=== PATIENT | male | born 1950 | race Caucasian/White ===

== ENCOUNTER → 2017-01-18 | Outpatient (CLI) | payer MEDICARE, OTHER ==
[~2017-01-18] MED LIST: BETAPACE AF80 MG PO; CARDIZEM 90MG T90 MG PO; CRESTOR40 MG PO; DEXILANT60 MG PO; ELIQUIS 5 MG TAB5 MG PO; IMDUR ER TAB 3030 MG PO; NITROGLYCERIN0.4 MG SL; PERCOCET 10-321 EACH PO; PLAVIX 75 MG TA75 MG PO; PRINIVIL20 MG PO
[2017-01-18 10:10] LABS: HEMOGLOBIN 15.3 gm/dl (14.0-17.5); RED BLOOD COUNT 5.82 M/UL (4.20-5.50); WHITE BLOOD COUNT 6.4 K/UL (4.5-11.0)
[2017-01-18 10:31] LABS: BUN/CREATININE RATIO 14 (0-10)
== END ==
LOC: LAB 09:35
PROVIDERS: Family Medicine
DX: Z12.5 Encounter for screening for malignant neoplasm of prostate (principal); D75.1 Secondary polycythemia; R53.83 Other fatigue; E78.5 Hyperlipidemia, unspecified; I10 Essential (primary) hypertension; R97.20 Elevated prostate specific antigen [PSA]; E55.9 Vitamin D deficiency, unspecified
CPT/HCPCS: 36415; 80053; 80061; 84439; 84443; 85027; 99195; G0103

== ENCOUNTER → 2017-03-11 | Outpatient (CLI) | payer MEDICARE, OTHER ==
[2017-03-11 10:23] LABS: HEMOGLOBIN 13.9 gm/dl (14.0-17.5); RED BLOOD COUNT 5.53 M/UL (4.20-5.50); WHITE BLOOD COUNT 5.7 K/UL (4.5-11.0)
== END ==
LOC: LAB 09:59
PROVIDERS: Internal Medicine Cardiovascular Disease
DX: D61.818 Other pancytopenia (principal)
CPT/HCPCS: 36415; 85025

== ENCOUNTER → 2017-04-29 | Outpatient (CLI) | payer MEDICARE, OTHER ==
[2017-04-29 09:13] LABS: HEMOGLOBIN 13.1 gm/dl (14.0-17.5); RED BLOOD COUNT 5.36 M/UL (4.20-5.50); WHITE BLOOD COUNT 5.7 K/UL (4.5-11.0)
== END ==
LOC: LAB 08:45
PROVIDERS: Internal Medicine Cardiovascular Disease
DX: D75.1 Secondary polycythemia (principal)
CPT/HCPCS: 36415; 85025

== ENCOUNTER 2017-07-23 16:21 | Inpatient (IN) | payer MEDICARE, OTHER ==
[~2017-07-23] VITALS: Ht 177.8 cm; Wt 129.3 kg
[2017-07-23 20:04] LABS: HEMOGLOBIN 13.6 gm/dl (14.0-17.5); RED BLOOD COUNT 5.57 M/UL (4.20-5.50); WHITE BLOOD COUNT 7.2 K/UL (4.5-11.0)
[2017-07-23 20:08] LABS: BUN/CREATININE RATIO 13 (0-10)
[2017-07-24] MEDS ORDERED: ELIQUIS 5 MG TAB5 MG PO (05:16)
[2017-07-24] MEDS ORDERED: DEXILANT60 MG PO (05:17)
[2017-07-24] MEDS ORDERED: PLAVIX 75 MG TA75 MG PO (05:17)
[2017-07-24] MEDS ORDERED: IMDUR ER TAB 3030 MG PO (05:18)
[2017-07-24] MEDS ORDERED: PRINIVIL20 MG PO (05:19)
[2017-07-24] MEDS ORDERED: NITROGLYCERIN0.4 MG SL (05:20)
[2017-07-24] MEDS ORDERED: PERCOCET 10-321 EACH PO (05:20)
[2017-07-24] MEDS ORDERED: CRESTOR40 MG PO (05:21)
[2017-07-24] MEDS ORDERED: BETAPACE AF80 MG PO (05:22)
[2017-07-24 05:55] LABS: HEMOGLOBIN 14.2 gm/dl (14.0-17.5); RED BLOOD COUNT 5.79 M/UL (4.20-5.50)
[2017-07-24 06:13] LABS: BUN/CREATININE RATIO 13 (0-10)
[2017-07-25 04:18] LABS: HEMOGLOBIN 14.5 gm/dl (14.0-17.5); RED BLOOD COUNT 5.92 M/UL (4.20-5.50); WHITE BLOOD COUNT 7.4 K/UL (4.5-11.0)
[2017-07-25 04:40] LABS: BUN/CREATININE RATIO 14 (0-10)
[2017-07-27 03:44] LABS: HEMOGLOBIN 14.6 gm/dl (14.0-17.5); RED BLOOD COUNT 5.99 M/UL (4.20-5.50); WHITE BLOOD COUNT 6.7 K/UL (4.5-11.0)
[2017-07-27 04:09] LABS: BUN/CREATININE RATIO 15 (0-10)
[2017-07-27] MEDS ORDERED: CARDIZEM 90MG T90 MG PO (13:12)
== END 2017-07-27 15:17 | disposition home or self-care (01) | DRG 309 ==
LOC: ER1 16:21 → PROG CARE 07-24 02:17 → ZEROF 07-24 02:17 → CCU 07-24 02:17 → PROG CARE 07-25 17:49
PROVIDERS: Family Medicine; Internal Medicine; ADMIT Internal Medicine
PROC: 5A2204Z Restoration of Cardiac Rhythm, Single (ICD-10-PCS; principal; 2017-07-27)
DX: I48.91 Unspecified atrial fibrillation (principal); Z68.41 Body mass index [BMI] 40.0-44.9, adult; I10 Essential (primary) hypertension; E78.5 Hyperlipidemia, unspecified; I25.10 Atherosclerotic heart disease of native coronary artery without angina pectoris; R07.9 Chest pain, unspecified; Z95.5 Presence of coronary angioplasty implant and graft; E66.01 Morbid (severe) obesity due to excess calories; I45.10 Unspecified right bundle-branch block; Z90.49 Acquired absence of other specified parts of digestive tract; Z98.890 Other specified postprocedural states; Z88.5 Allergy status to narcotic agent; Z79.02 Long term (current) use of antithrombotics/antiplatelets; Z79.899 Other long term (current) drug therapy; Z79.891 Long term (current) use of opiate analgesic; Z87.891 Personal history of nicotine dependence; Z83.3 Family history of diabetes mellitus; Z80.9 Family history of malignant neoplasm, unspecified; N40.0 Benign prostatic hyperplasia without lower urinary tract symptoms; G89.4 Chronic pain syndrome
CPT/HCPCS: ECHO; 36415; 71010; 78452; 80048; 80053; 82550; 82553; 83735; 83874; 83880; 84439; 84443; 84484; 85025; 85027; 93005; 93017; 93306; A9502; J1200; J2250; J2785; J7030

== ENCOUNTER → 2020-11-11 | Outpatient (CLI) | payer MEDICARE, OTHER ==
[~2020-11-11] MED LIST changes: +AMLODIPINE BESY10 MG PO; +ASPIRIN CHEWABL81 MG PO; +ASPIRIN EC81 MG PO; +BETAPACE120 MG PO; +ENDOCET 10-3251 EACH PO; +LOPRESSOR 25 MG25 MG PO; +NITROSTAT0.4 MG SL; -PERCOCET 10-321 EACH PO; +SINGULAIR10 MG PO; +VITAMIN D2 PO
== END ==
LOC: LAB 09:48
DX: M31.6 Other giant cell arteritis (principal); N42.9 Disorder of prostate, unspecified; R97.20 Elevated prostate specific antigen [PSA]
CPT/HCPCS: 36415; 84153; 85652; 86140

== ENCOUNTER → 2020-11-27 | Outpatient (CLI) | payer MEDICARE, OTHER ==
[2020-11-27 10:07] LABS: HEMOGLOBIN 13.7 gm/dl (14.0-17.5); RED BLOOD COUNT 5.17 M/UL (4.20-5.50); WHITE BLOOD COUNT 4.2 K/UL (4.5-11.0)
== END ==
LOC: LAB 09:35
PROVIDERS: Internal Medicine Cardiovascular Disease
DX: H47.20 Unspecified optic atrophy (principal); I77.6 Arteritis, unspecified; R06.02 Shortness of breath
CPT/HCPCS: 36415; 82565; 85025; 85652; 86140

== ENCOUNTER → 2020-11-28 | Outpatient (CLI) | payer MEDICARE, OTHER | LOC: MRI 11-20 13:15 | DX: H47.293 Other optic atrophy, bilateral (principal); Z53.9 Procedure and treatment not carried out, unspecified reason ==

== ENCOUNTER → 2020-12-06 | Outpatient (CLI) | payer MEDICARE, OTHER | LOC: CT 11-22 13:30 | DX: H47.20 Unspecified optic atrophy (principal); M31.6 Other giant cell arteritis; R91.8 Other nonspecific abnormal finding of lung field | CPT/HCPCS: 70496; 70498; 71046; Q9967; U0003 ==

== ENCOUNTER → 2020-12-06 | Outpatient (CLI) | payer MEDICARE, OTHER | LOC: RAD 12:22 | DX: U07.1 COVID-19 (principal); R91.8 Other nonspecific abnormal finding of lung field | CPT/HCPCS: 71046 ==

== ENCOUNTER → 2020-12-06 | Outpatient (CLI) | payer MEDICARE, OTHER | LOC: LBRF 13:21 | DX: U07.1 COVID-19 (principal) | CPT/HCPCS: U0003 ==

== ENCOUNTER → 2021-01-14 | Outpatient (CLI) | payer MEDICARE, OTHER ==
[2021-01-14 10:51] LABS: HEMOGLOBIN 13.3 gm/dl (14.0-17.5); RED BLOOD COUNT 5.03 M/UL (4.20-5.50)
== END ==
LOC: LAB 10:19
PROVIDERS: Internal Medicine Cardiovascular Disease
DX: R06.02 Shortness of breath (principal)
CPT/HCPCS: 36415; 85025

== ENCOUNTER → 2021-01-21 | Outpatient (CLI) | payer MEDICARE, OTHER | LOC: LAB 10:53 | DX: H47.019 Ischemic optic neuropathy, unspecified eye (principal) | CPT/HCPCS: 36415; 85652; 86140 ==

== ENCOUNTER → 2021-03-06 | Outpatient (CLI) | payer MEDICARE, OTHER ==
[2021-03-06 10:04] LABS: HEMOGLOBIN 13.7 gm/dl (14.0-17.5); RED BLOOD COUNT 5.12 M/UL (4.20-5.50)
== END ==
LOC: LAB 09:33
PROVIDERS: Internal Medicine Cardiovascular Disease
DX: R06.02 Shortness of breath (principal)
CPT/HCPCS: 36415; 85025

== ENCOUNTER → 2021-04-15 | Outpatient (CLI) | payer MEDICARE, OTHER ==
[2021-04-15 10:57] LABS: RED BLOOD COUNT 5.18 M/UL (4.20-5.50); WHITE BLOOD COUNT 5.3 K/UL (4.5-11.0)
[2021-04-15 11:38] LABS: BUN/CREATININE RATIO 17 (0-10)
== END ==
LOC: LAB 09:57
PROVIDERS: Family Medicine
DX: Z12.5 Encounter for screening for malignant neoplasm of prostate (principal); R91.8 Other nonspecific abnormal finding of lung field; E78.5 Hyperlipidemia, unspecified; I10 Essential (primary) hypertension; E55.9 Vitamin D deficiency, unspecified; R97.20 Elevated prostate specific antigen [PSA]
CPT/HCPCS: 36415; 71046; 80053; 80061; 84439; 84443; 85027; G0103

== ENCOUNTER → 2021-05-07 | Outpatient (CLI) | payer MEDICARE, OTHER ==
[2021-05-07 10:02] LABS: RED BLOOD COUNT 5.22 M/UL (4.20-5.50); WHITE BLOOD COUNT 5.7 K/UL (4.5-11.0)
== END ==
LOC: LAB 09:39
PROVIDERS: Internal Medicine Cardiovascular Disease
DX: R06.02 Shortness of breath (principal)
CPT/HCPCS: 36415; 85025

== ENCOUNTER → 2021-06-26 | Outpatient (CLI) | payer MEDICARE, OTHER ==
[2021-06-26 10:02] LABS: HEMOGLOBIN 13.3 gm/dl (14.0-17.5); RED BLOOD COUNT 4.95 M/UL (4.20-5.50); WHITE BLOOD COUNT 6.4 K/UL (4.5-11.0)
== END ==
LOC: LAB 09:37
PROVIDERS: Internal Medicine Cardiovascular Disease
DX: R06.02 Shortness of breath (principal)
CPT/HCPCS: 36415; 85025

== ENCOUNTER → 2021-08-18 | Outpatient (CLI) | payer MEDICARE, OTHER ==
[2021-08-18 10:17] LABS: HEMOGLOBIN 13.8 gm/dl (14.0-17.5); RED BLOOD COUNT 5.17 M/UL (4.20-5.50); WHITE BLOOD COUNT 6.7 K/UL (4.5-11.0)
== END ==
LOC: LAB 09:38
PROVIDERS: Internal Medicine Cardiovascular Disease
DX: R06.02 Shortness of breath (principal)
CPT/HCPCS: 36415; 85025

== ENCOUNTER → 2021-10-15 | Outpatient (CLI) | payer MEDICARE, OTHER ==
[2021-10-15 09:25] LABS: HEMOGLOBIN 13.7 gm/dl (14.0-17.5); RED BLOOD COUNT 5.27 M/UL (4.20-5.50); WHITE BLOOD COUNT 6.6 K/UL (4.5-11.0)
== END ==
LOC: LAB 09:03
PROVIDERS: Internal Medicine Cardiovascular Disease
DX: R06.02 Shortness of breath (principal)
CPT/HCPCS: 36415; 85025

== ENCOUNTER → 2021-12-15 | Outpatient (CLI) | payer MEDICARE, OTHER ==
[2021-12-15 10:53] LABS: HEMOGLOBIN 13.1 gm/dl (14.0-17.5); RED BLOOD COUNT 5.45 M/UL (4.20-5.50); WHITE BLOOD COUNT 9.9 K/UL (4.5-11.0)
[2021-12-16 08:13] LABS: A/G RATIO 1.5 (1.2-2.2); ALKALINE PHOSPHATASE, S 199 IU/L (44-121); ALT (SGPT) 67 IU/L (0-44); AST (SGOT) 57 IU/L (0-40); BILIRUBIN, TOTAL 0.7 mg/dL (0.0-1.2); BUN 20 mg/dL (8-27); BUN/CREATININE RATIO 21 (10-24); CALCIUM, SERUM 8.9 mg/dL (8.6-10.2); CARBON DIOXIDE, TOTAL 22 mmol/L (20-29); CHLORIDE, SERUM 104 mmol/L (96-106); CHOLESTEROL, TOTAL 125 mg/dL (100-199); CREATININE, SERUM 0.96 mg/dL (0.76-1.27); EGFR IF AFRICN AM 91 (>59); EGFR IF NONAFRICN AM 79 (>59); GLOBULIN, TOTAL 2.5 g/dL (1.5-4.5); GLUCOSE, SERUM 91 mg/dL (65-99); HDL CHOLESTEROL 39 mg/dL (>39); LDL CHOLESTEROL CALC 66 mg/dL (0-99); LDL/HDL RATIO 1.7 ratio (0.0-3.6); POTASSIUM, SERUM 4.9 mmol/L (3.5-5.2); PROTEIN, TOTAL, SERUM 6.2 g/dL (6.0-8.5); SODIUM, SERUM 139 mmol/L (134-144); T. CHOL/HDL RATIO 3.2 ratio (0.0-5.0); TRIGLYCERIDES 106 mg/dL (0-149)
== END ==
LOC: LAB 09:25
PROVIDERS: Family Medicine
DX: D45 Polycythemia vera (principal); E78.5 Hyperlipidemia, unspecified; E55.9 Vitamin D deficiency, unspecified
CPT/HCPCS: 36415; 80053; 80061; 84439; 84443; 85025

== ENCOUNTER → 2022-01-07 | Outpatient (CLI) | payer MEDICARE, OTHER | LOC: EXRD 08:32 | DX: G47.30 Sleep apnea, unspecified (principal); R91.8 Other nonspecific abnormal finding of lung field | CPT/HCPCS: 71046 ==

== ENCOUNTER → 2022-02-09 | Outpatient (CLI) | payer MEDICARE, OTHER ==
[2022-02-09 11:23] LABS: HEMOGLOBIN 12.4 gm/dl (14.0-17.5); RED BLOOD COUNT 5.08 M/UL (4.20-5.50); WHITE BLOOD COUNT 7.6 K/UL (4.5-11.0)
== END ==
LOC: LAB 10:17
PROVIDERS: Nurse Practitioner Family
DX: D45 Polycythemia vera (principal)
CPT/HCPCS: 36415; 85025

== ENCOUNTER → 2022-02-17 | Outpatient (CLI) | payer MEDICARE, OTHER | LOC: EXRD 08:18 | DX: R06.02 Shortness of breath (principal); J98.11 Atelectasis | CPT/HCPCS: 71046 ==

== ENCOUNTER → 2022-06-23 | Outpatient (CLI) | payer MEDICARE, OTHER ==
[2022-06-23 12:43] LABS: HEMOGLOBIN 11.8 gm/dl (14.0-17.5); RED BLOOD COUNT 5.14 M/UL (4.20-5.50); WHITE BLOOD COUNT 5.5 K/UL (4.5-11.0)
== END ==
LOC: LAB 10:54
PROVIDERS: Internal Medicine Cardiovascular Disease
DX: E78.5 Hyperlipidemia, unspecified (principal); D45 Polycythemia vera
CPT/HCPCS: 36415; 85025